=== PATIENT | female | born 1970 | race American Indian/Alaskan Native ===

== ENCOUNTER 2016-06-04 09:09 | Day surgery (SDC) | payer OTHER ==
--- NOTE | 2016-06-02 15:39 | History and Physical Report ---
History of Present Illness Date of examination: 06/01/16 Date of admission: 06/04/16 Chief complaint: Post coitial bleeding History of present illness: Pt presents c/o having bleeding after sex after several years of no menses. SIS revealed an endometrial mass. Pt is her to have it removed via myosure and to have dx hysteroscopy. All risk/benefits/alternatives were d/w pt and questions were addressed and answered. Pt given ample time to ask questions. Pt called who also had all questions addressed and answered. Consent form was signed. Vital Signs: Patient Profile: 46 Years Old Female Height: 66 inches (167.64 cm) Weight: 180 pounds (81.82 kg) BMI: 29.05 BP sittin / 70 (left arm) Vitals Entered By: Lina Barahona (June 01, 2016 10:24 AM) Past History : 3 Living Children: 2 Para: 2 Aborta: 1 Spont. 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: denies: abnormal PAP smear, chlamydia, gonorrhea Family/Genetic History: none Social history: no significant social history, Medications and Allergies Allergies Allergy/AdvReac Type Severity Reaction Status Date / Time No Known Allergies Allergy Unverified 05/28/16 12:24 Home Medications Medication Instructions Recorded Confirmed Last Taken Type No Known Home Medications [No 05/28/16 05/28/16 Unknown History Reported Home Medications] Review of Systems All systems: negative - Physical Exam Cardiovascular: Normal S1, Normal S2 Lungs: Positive: Normal air movement Abdomen: Positive: normal appearance, soft. Negative: distention, tenderness, guarding Genitourinary (Female): Positive: other (deferred until EUA previously normal) Extremities: Positive: normal Results All other labs normal. Assessment and Plan - Patient Problems (1) Endometrial mass Status: Acute Plan to address problem: -to OR for above stated procedures -all risk,benefits, alternatives have been d/w pt and all questions were addressed and answered -consents were signed and placed on the chart. (2) PCB (post coital bleeding) Status: Chronic Plan to address problem: -to OR for above stated procedures -all risk,benefits, alternatives have been d/w pt and all questions were addressed and answered -consents were signed and placed on the chart.
[~2016-06-04 09:09] MED LIST: ANCEF/STERILE WATER 2 GM/20 ML 2 GM/20 ML SYRINGE IV NR; DILAUDID ONE; DIPRIVAN 10 MG/ML IV ONE
--- NOTE | 2016-06-04 09:42 | Anesthesia Consultation ---
Anesthesia Consult and Med Hx Date of service: 06/04/16 - Airway Anesthetic Teeth Evaluation: Good ROM Head & Neck: Adequate Mental/Hyoid Distance: Adequate Mallampati Class: Class II Intubation Access Assessment: Probably Good - Pulmonary Exam CTA: Yes - Cardiac Exam Cardiac Exam: RRR - Pre-Operative Health Status ASA Pre-Surgery Classification: ASA2 Proposed Anesthetic Plan: General - Pulmonary Hx Asthma: Yes (last treated approx 6 mos ago) - Central Nervous System Hx Psychiatric Problems: No - Hematic Hx Sickle Cell Disease: Yes (trait only) - Other Systems Hx Cancer: No
--- NOTE | 2016-06-04 09:42 | Anesthesia Day of Surgery ---
Anesthesia Day of Surgery - Day of Surgery Patient Examined: Yes Patient H&P Reviewed: Yes Patient is NPO: Yes
[2016-06-04] MEDS ORDERED: NACL BACTERIOSTATIC INFILTRATI ONE (09:56)
[2016-06-04] MEDS ORDERED: PEPCID IV NR (10:00)
[2016-06-04] MEDS ORDERED: NACL 0.9% 1000 ML 1,000 ML IV SCH (10:00)
[2016-06-04] MEDS ORDERED: VERSED IV NR (10:00)
[2016-06-04] MEDS ORDERED: ZOFRAN IV PRN ×2 (10:32→13:34)
[2016-06-04] MEDS ORDERED: DILAUDID IV PRN (10:32)
[2016-06-04 10:42] LABS: Hematocrit 37.5 % (30.3-42.9); Hemoglobin 12.6 gm/dl (10.1-14.3); Mean Corpuscular HGB Conc 34 % (30-34); Mean Corpuscular Hemoglobin 27 pg (28-32); Mean Corpuscular Volume 81 fl (79-97); Platelet Count 303 K/mm3 (140-440); Red Blood Count 4.63 M/mm3 (3.65-5.03); Red Cell Distribution Width 14.5 % (13.2-15.2); White Blood Count 6.8 K/mm3 (4.5-11.0)
[2016-06-04] MEDS ORDERED: ZOFRAN ONE (11:23)
[2016-06-04] MEDS ORDERED: XYLOCAINE MPF 2% ONE (11:23)
[2016-06-04] MEDS ORDERED: DECADRON ONE (11:24)
[2016-06-04] MEDS ORDERED: NACL 0.9% IR ONE (11:42)
[2016-06-04] MEDS ORDERED: QUELICIN ONE (11:50)
--- NOTE | 2016-06-04 12:09 | Short Stay Summary ---
Short Stay Documentation Date of service: 06/04/16 - History H&P: dictated Past Medical History: No medical history Past Surgical History: No surgical history Social history: no significant social history, - Allergies and Medications Current Medications: Allergies No Known Allergies Allergy (Unverified 05/28/16 12:24) Home Medications Medication Instructions Recorded Confirmed Last Taken Type Ibuprofen [Motrin] 800 mg PO Q8HR PRN #30 tablet 06/04/16 Unknown Rx oxyCODONE /ACETAMINOPHEN [Percocet 1 tab PO Q4HR #20 tab 06/04/16 Unknown Rx 5/325] Active Medications Famotidine (Pepcid) 20 mg IV PREOP NR Stop: 06/04/16 23:59 Last Admin: 06/04/16 10:11 Dose: 20 mg Hydromorphone HCl (Dilaudid) 0.5 mg IV Q10MIN PRN PRN Reason: Pain , Severe (7-10) Stop: 06/04/16 18:00 Cefazolin Sodium (Ancef/Sterile Water 2 Gm/20 Ml) 2 gm in 20 mls @ 40 mls/hr IV PREOP NR PRN Reason: Protocol Stop: 06/04/16 23:00 Sodium Chloride (Nacl 0.9% 1000 Ml) 1,000 mls @ 75 mls/hr IV DIRECT YOANNA Last Admin: 06/04/16 10:10 Dose: 75 mls/hr Midazolam HCl (Versed) 2 mg IV PREOP NR Stop: 06/04/16 23:59 Last Admin: 06/04/16 10:15 Dose: 2 mg Ondansetron HCl (Zofran) 4 mg IV ONCE PRN PRN Reason: Nausea And Vomiting Stop: 06/04/16 18:00 - Physical exam Lungs: Normal air movement Breasts: deferred Heart: Normal S1, Normal S2 Gastrointestinal: normal Female Genitourinary: normal Rectal Exam: deferred Extremities: no ischemia, No edema Neurological: Normal gait, Normal speech, Cranial nerves 3-12 NL - Brief post op/procedure progress note Date of procedure: 06/04/16 Pre-op diagnosis: endometrial mass, irregular menses Post-op diagnosis: same Procedure: myosure hysteroscopy Anesthesia: GETA Findings: see op note Surgeon: BRENNON GARCIA Estimated blood loss: minimal Pathology: list (endometrial tissue) Specimen disposition: to lab - Hospital course Hospital course: Pt admitted for above stated procedure. Pt will be d/c home once recovery completed in pacu. - Disposition Condition at discharge: Good Disposition: DISCHARGED TO HOME OR SELFCARE - Discharge Diagnoses (1) Endometrial mass Status: Acute (2) PCB (post coital bleeding) Status: Chronic Short Stay Discharge Plan Activity: no restrictions Weight Bearing Status: Weight Bear as Tolerated Diet: regular Follow up with: PRIMARY CARE, [Primary Care Provider] - 7 Days Prescriptions: Ibuprofen [Motrin] 800 mg PO Q8HR PRN #30 tablet PRN Reason: Pain oxyCODONE /ACETAMINOPHEN [Percocet 5/325] 1 tab PO Q4HR #20 tab
--- NOTE | 2016-06-04 13:20 | Post Anesthesia Evaluation ---
- Post Anesthesia Evaluation Patient Participated: Yes Airway Patent: Yes Stable Respiratory Function: Yes Nausea/Vomiting: No Temp > 96.8F: Yes Pain Manageable: Yes Adequeate Hydration: Yes Anesthesia Complications: No Block Receding Appropriately: Not Applicable Patient on Ventilator: No
[2016-06-04] MEDS ORDERED: BENADRYL ONE (13:26)
[2016-06-04] MEDS ORDERED: BENADRYL IV ONE (14:00)
--- NOTE | 2016-06-04 14:02 | Event Note ---
Date: 06/04/16 Called to patient bedside. After general anesthesia it was noted that she had hayden-orbital edema, right>left. Patient denies any other symptoms such as difficulty breathing, swallowing or swelling of tongue or face. Appears that patient have contact allergy to paper tape. Patient received IV benadryl in PACU. Patient and instructed that if symptoms should get worse to call 911 immediately and go to the emergency room.
[2016-06-04 14:11] VITALS: BP 116/71
--- NOTE | 2016-06-04 19:55 | Operative Report ---
Operative Report Operative Report: Date of procedure: 06/04/2016 Pre-operative diagnosis: Intrauterine mass Postcoital bleeding Post-operative diagnosis: Same Procedure name(s): Hysteroscopy Myosure Surgeon: Dr. Blankenship Candlemaker: Certified surgical [employer] Anesthesia: Gen. endotracheal anesthesia EBL:l minimal Urine output: Fluids: 500 mL Findings: Fairly thin endometrial lining noted on hysteroscopy. The right ostia was clearly seen as well as the left ostia. There was an approximately 1 cm polyp that was in the lower uterine segment. Indications: Patient presented with postcoital bleeding. Saline infused sonogram showed 1 cm endometrial mass. Patient was given treatment options. Patient desired removal of the mass via Myosure. All risks benefits and alternatives were discussed with the patient. Consents were signed and placed on the chart. Procedure: Patient was taken to the operating room where she was placed under general anesthesia. She was placed in dorsal lithotomy position with legs in Abdiel stirrups. She was then prepped and draped in sterile fashion.. The anterior lip of the cervix was grasped with a tenaculum and the uterus was sounded to approximately 8 cm. As at this point that the cervix was dilated to allow the passage of a Myosure hysteroscope. The Myosure device was then placed inside of the uterus and the intrauterine mass was removed without difficulty. Uterine cavity was noted to have a smooth appearance. Hemostasis was noted to be excellent. Patient was taken to the recovery room awake and in stable condition. Patient was given Ancef prior to the onset of the procedure. All laps and needle counts were correct. Patient tolerated the procedure well.
== END 2016-06-04 14:19 | disposition home or self-care (01) ==
LOC: OR 09:09
PROVIDERS: ATTEND Obstetrics & Gynecology
DX: N84.0 Polyp of corpus uteri (principal); J45.909 Unspecified asthma, uncomplicated; D57.3 Sickle-cell trait; E78.00 Pure hypercholesterolemia, unspecified
CPT/HCPCS: 36415; 58558; 81025; 85027; 88305; A4217; C1782; J0330; J0690; J1100; J1170; J1200; J2250; J2405; J2704; J7030